=== PATIENT | male | born 1960 | race Caucasian/White ===

== ENCOUNTER 2021-04-10 07:31 | Emergency (ER) | payer OTHER, SELFPAY ==
[2021-04-10 07:37] VITALS: BP 160/84; PULSE 54; RESP 16; TEMP 36.6; O2SAT 98
--- NOTE | 2021-04-10 09:12 | W.ED.GENAD ---
Discharge Plan Disposition Patient Disposition: HOME Condition: Stable Discharge Details Clinical Impression: Rash, Diarrhea, Loss of appetite Primary Care Provider: [facility],Local ED Provider: Chery Martinez Home Meds and New Rx's Prescriptions: No Action No Known Home Meds RF: 0 Discharge Instructions Instructions: Lyme Disease (ED), Acute Diarrhea (ED), Acute Rash (ED) Additional Instructions: Please return immediately to the emergency department if you develop any new or worsening symptoms, if your condition does not improve as expected, or if you become otherwise concerned. It is extremely important that you call soon as possible to make an appointment to be seen in follow-up for this visit by your primary care doctor. Discharge Data Discharge Date/Time-TO BE ENTERED AT DEPARTURE: 04/10/21 11:18 Medical Decision Making Seven Macario is a 61-year-old man without reported major medical problems presenting to emergency department with chief complaint rash, also with mild diarrhea, nausea, and decreased appetite over the past few days. On exam Pt is very well and non-toxic appearing. B/l symmetric erythematous rash to the armpits with central clearing in areas of armpit hair. Otherwise benign exam. Rash has appearance of contact dermatitis given bilateral symmetry and clearing in areas of hair. Given mild systemic symptoms and outdoor exposure, plan for tick panel, screening labs, stool studies. Exam/hx at this time not c/w erythema migrans, sepsis, cellulitis, abscess. No indication for lyme ppx at this time. Labs reviewed, non-diagnostic, WBC 4.5, crp neg, ESR 6. C. diff canceled as stool sample solid. I had a lengthy discussion with Patient regarding return to emergency department precautions, home care, and importance of outpatient follow-up. Pt verbalizes understanding of the plan and is amenable. Patient discharged to home with clear plan for outpatient follow-up. All questions were answered. Disposition decision was made weighing the risks and benefits of hospitalization versus outpatient treatment, the risk for further decompensation, and the patient's wishes. Medical Records Medical records reviewed: Yes I reviewed the patient's medical records. Lab Data Lab results reviewed: Yes I reviewed the patient's lab results. Labs: Laboratory Tests Range/Units 04/10/21 04/10/21 04/10/21 09:05 09:05 09:05 WBC (4.4-10.8) 10^3/uL 4.53 RBC (4.36-5.78) 10^6/uL 4.58 Hgb (13.5-17.5) g/dL 14.4 Hct (40.0-50.0) % 41.9 MCV (80-95) fL 91.5 MCH (27.0-33.0) pg 31.4 MCHC (32.0-36.0) % 34.4 RDW (11.8-14.1) % 11.9 Plt Count (130-400) 10^3/uL 237 MPV (8.0-11.0) fL 9.4 Immature Gran % 0.2 Neutrophils % 40.3 Lymphocytes % 42.8 Monocytes % 14.3 Eosinophils % 1.3 Basophils % 1.1 Nucleated RBC % % 0 Absolute Neutrophils (1.2-6.7) 10^3/uL 1.82 Absolute Lymphocytes (1.2-3.4) 10^3/uL 1.94 Absolute Monocytes (0.1-0.8) 10^3/uL 0.65 Absolute Eosinophils (0.0-0.7) 10^3/uL 0.06 Absolute Basophils (0.0-0.2) 10^3/uL 0.05 ESR (0-20) mm/hr 6 Sodium (136-145) mmol/L 141 Potassium (3.5-5.1) mmol/L 4.1 Chloride (98-107) mmol/L 104 Carbon Dioxide (21.0-32.0) mmol/L 29.2 Anion Gap (3-11) mmol/L 7.8 BUN (7-18) mg/dL 16 Creatinine (0.70-1.30) mg/dL 1.2 Estimated GFR/1.73 m2 (mL/min/1.73m2) >= 60.00 Glucose (74-106) mg/dL 100 Calcium (8.5-10.1) mg/dL 9.0 Total Bilirubin (0.2-1.0) mg/dL 0.6 AST (15-37) U/L 23 ALT (16-63) U/L 38 Alkaline Phosphatase (46-116) U/L 49 C-Reactive Protein (0.0-0.3) mg/dL < 0.05 Total Protein (6.4-8.2) g/dL 8.1 Albumin (3.4-5.0) g/dL 4.2 Urine Color (Yellow) Urine Clarity (Clear) Urine pH (5-8) Ur Specific [place] (1.005-1.025) Urine Protein (Negative) mg/dL Urine Ketones (Negative) mg/dL Urine Blood (Negative) Urine Nitrite (Negative) Urine Bilirubin (Negative) Urine Urobilinogen (Up TO 0.2) EU/dL Ur Leukocyte Esterase (Negative) Urine Glucose (Negative) mg/dL Stool Campylobacter PCR (Negative) Stl C.difficile Tox PCR Stool Salmonella PCR (Negative) Stool Shigella PCR (Negative) A.phagocytophil DNA PCR (Negative) B. divergens/MO-1 PCR (Negative) Babesia duncani (PCR) (Negative) Babesia microti DNA PCR (Negative) Borrelia (PCR) (Negative) Lyme Disease Antibody (Negative) E.chaffeensis DNA (PCR) (Negative) E.ewingii/canis DNA PCR (Negative) E. muris-like DNA (PCR) (Negative) Shiga Toxin (PCR) (Negative) Range/Units 04/10/21 04/10/21 04/10/21 09:05 09:30 09:30 WBC (4.4-10.8) 10^3/uL RBC (4.36-5.78) 10^6/uL Hgb (13.5-17.5) g/dL Hct (40.0-50.0) % MCV (80-95) fL MCH (27.0-33.0) pg MCHC (32.0-36.0) % RDW (11.8-14.1) % Plt Count (130-400) 10^3/uL MPV (8.0-11.0) fL Immature Gran % Neutrophils % Lymphocytes % Monocytes % Eosinophils % Basophils % Nucleated RBC % % Absolute Neutrophils (1.2-6.7) 10^3/uL Absolute Lymphocytes (1.2-3.4) 10^3/uL Absolute Monocytes (0.1-0.8) 10^3/uL Absolute Eosinophils (0.0-0.7) 10^3/uL Absolute Basophils (0.0-0.2) 10^3/uL ESR (0-20) mm/hr Sodium (136-145) mmol/L Potassium (3.5-5.1) mmol/L Chloride (98-107) mmol/L Carbon Dioxide (21.0-32.0) mmol/L Anion Gap (3-11) mmol/L BUN (7-18) mg/dL Creatinine (0.70-1.30) mg/dL Estimated GFR/1.73 m2 (mL/min/1.73m2) Glucose (74-106) mg/dL Calcium (8.5-10.1) mg/dL Total Bilirubin (0.2-1.0) mg/dL AST (15-37) U/L ALT (16-63) U/L Alkaline Phosphatase (46-116) U/L C-Reactive Protein (0.0-0.3) mg/dL Total Protein (6.4-8.2) g/dL Albumin (3.4-5.0) g/dL Urine Color (Yellow) Urine Clarity (Clear) Urine pH (5-8) Ur Specific [place] (1.005-1.025) Urine Protein (Negative) mg/dL Urine Ketones (Negative) mg/dL Urine Blood (Negative) Urine Nitrite (Negative) Urine Bilirubin (Negative) Urine Urobilinogen (Up TO 0.2) EU/dL Ur Leukocyte Esterase (Negative) Urine Glucose (Negative) mg/dL Stool Campylobacter PCR (Negative) Negative Stl C.difficile Tox PCR Cancelled Stool Salmonella PCR (Negative) Negative Stool Shigella PCR (Negative) Negative A.phagocytophil DNA PCR (Negative) Negative B. divergens/MO-1 PCR (Negative) Negative Babesia duncani (PCR) (Negative) Negative Babesia microti DNA PCR (Negative) Negative Borrelia (PCR) (Negative) Negative Lyme Disease Antibody (Negative) Negative E.chaffeensis DNA (PCR) (Negative) Negative E.ewingii/canis DNA PCR (Negative) Negative E. muris-like DNA (PCR) (Negative) Negative Shiga Toxin (PCR) (Negative) Negative Range/Units 04/10/21 09:32 WBC (4.4-10.8) 10^3/uL RBC (4.36-5.78) 10^6/uL Hgb (13.5-17.5) g/dL Hct (40.0-50.0) % MCV (80-95) fL MCH (27.0-33.0) pg MCHC (32.0-36.0) % RDW (11.8-14.1) % Plt Count (130-400) 10^3/uL MPV (8.0-11.0) fL Immature Gran % Neutrophils % Lymphocytes % Monocytes % Eosinophils % Basophils % Nucleated RBC % % Absolute Neutrophils (1.2-6.7) 10^3/uL Absolute Lymphocytes (1.2-3.4) 10^3/uL Absolute Monocytes (0.1-0.8) 10^3/uL Absolute Eosinophils (0.0-0.7) 10^3/uL Absolute Basophils (0.0-0.2) 10^3/uL ESR (0-20) mm/hr Sodium (136-145) mmol/L Potassium (3.5-5.1) mmol/L Chloride (98-107) mmol/L Carbon Dioxide (21.0-32.0) mmol/L Anion Gap (3-11) mmol/L BUN (7-18) mg/dL Creatinine (0.70-1.30) mg/dL Estimated GFR/1.73 m2 (mL/min/1.73m2) Glucose (74-106) mg/dL Calcium (8.5-10.1) mg/dL Total Bilirubin (0.2-1.0) mg/dL AST (15-37) U/L ALT (16-63) U/L Alkaline Phosphatase (46-116) U/L C-Reactive Protein (0.0-0.3) mg/dL Total Protein (6.4-8.2) g/dL Albumin (3.4-5.0) g/dL Urine Color (Yellow) Yellow Urine Clarity (Clear) Clear Urine pH (5-8) 6.0 Ur Specific [place] (1.005-1.025) 1.020 Urine Protein (Negative) mg/dL Negative Urine Ketones (Negative) mg/dL Negative Urine Blood (Negative) Negative Urine Nitrite (Negative) Negative Urine Bilirubin (Negative) Negative Urine Urobilinogen (Up TO 0.2) EU/dL 0.2 Ur Leukocyte Esterase (Negative) Negative Urine Glucose (Negative) mg/dL Negative Stool Campylobacter PCR (Negative) Stl C.difficile Tox PCR Stool Salmonella PCR (Negative) Stool Shigella PCR (Negative) A.phagocytophil DNA PCR (Negative) B. divergens/MO-1 PCR (Negative) Babesia duncani (PCR) (Negative) Babesia microti DNA PCR (Negative) Borrelia (PCR) (Negative) Lyme Disease Antibody (Negative) E.chaffeensis DNA (PCR) (Negative) E.ewingii/canis DNA PCR (Negative) E. muris-like DNA (PCR) (Negative) Shiga Toxin (PCR) (Negative) HPI General Mode of arrival: ambulatory. Date/Time Provider Initiated Documentation: 04/10/21 08:47. Limitations to Documentation: no limitations. Information obtained by: patient, RN notes reviewed and old records reviewed. HPI Narrative: Seven Macario is a 61-year-old man without reported major medical problems presenting to emergency department with chief complaint rash. Patient reports that he lives in [place], has been in [place] for 10 days attending a meditation retreat. Patient reports that he has been spending a significant amount of time walking in the jones and sitting in grass. Patient reports that this morning in the bathroom he was raising his arm in front of the mirror and noticed rash to both of his armpits. Patient reports that he does not typically look at this area in the mirror, and is unsure how long rash has been present for. He denies any pain, itching, or other symptoms in the area of the rash. He denies any new detergents, lotions, deodorants, or other known new exposures. Patient reports that over the past few days he has also had diarrhea, mild abdominal cramping, and has had some decrease in his appetite which is atypical for him. Patient reports that he has no current pain. He reports mild dyspnea with exertion that is at baseline for him, also reports morning cough that is typical for him, though he is unsure whether his typical cough has become somewhat more productive than usual. He denies any fevers, numbness, weakness, vomiting, any other rash. Feels otherwise well and in his usual state of health. Denies allergies. Patient reports that he drinks 12 beers per week. Denies nicotine/tobacco use, denies recreational drug use. Patient reports that he is flying to [place] tomorrow, and was concerned that rash might represent tickborne illness, and wanted to get checked before traveling home. Patient has not found a tick on him, no known history of tick bite. Related Data Home Medications Medication Instructions Recorded Confirmed Unknown [No Known Home Meds] 04/10/21 04/10/21 Allergies Allergy/AdvReac Type Severity Reaction Status Date / Time iodine AdvReac Intermediate Skin Rash Unverified 04/10/21 07:41 General Stated Complaint: Abd Prob YNES: 3 Review of Systems Narrative: Constitutional: denies fevers Eyes: denies eye pain ENT: denies ear pain, dental pain, sore throat Cardiovascular: denies chest pain, edema Respiratory: reports chronic mild SOB, cough GI: denies vomiting, reports diarrhea, intermittent abdominal cramping : denies flank pain MSK: denies back pain, neck pain, arthralgias, myalgias Skin: reports rash b/l armpits Neuro: denies headaches, numbness, weakness [facility] Active Problem List Rash (Acute) Diarrhea (Acute) Loss of appetite (Acute) Social History Smoking/Tobacco Use Status: Former Tobacco Use Smoking risk assessment performed?: Yes Alcohol Intake: current Alcohol Intake frequency: a few times a week Drug use: Never Substance use type: does not use Do you feel safe at home: Yes Do you feel safe in your relationship?: Yes Exam Narrative Exam Narrative: Constitutional: well and [id number], pleasant, conversing normally HENT: head atraumatic/normocephalic/normal inspection, mucous membranes moist Eyes: conjunctiva normal, sclera normal, pupils 3mm b/l Neck: no stridor, normal ROM, trachea midline Chest: mild symmetric macular erythematous rash to b/l armpits with clearing in areas of armpit hair, non-tender to palpation, no warmth/crepitus/fluctuance/edema, otherwise normal inspection of the chest Resp: normal work of breathing, LCTAB Cardio: normal rate, normal rhythm, no murmur appreciated GI: abdomen soft, non-tender, non-distended Back: normal inspection, no rash Skin: warm, dry, normal color, no rash Neuro: alert, not altered, grossly non-focal, normal tone Ext: no edema Psych: normal mood, normal affect, normal behavior Course Vital Signs Vital signs: Vital Signs Temperature 36.6 C 04/10/21 07:37 Pulse 54 L 04/10/21 07:37 Respiratory Rate 16 04/10/21 07:37 Blood Pressure 160/84 H 04/10/21 07:37 Pulse Oximetry 98 04/10/21 07:37 Temperature 36.6 C 04/10/21 07:37 Temperature Source Temporal Artery Scan 04/10/21 07:37 Pulse 54 L 04/10/21 07:37 Respiratory Rate 16 04/10/21 07:37 Respiratory Effort Non-Labored 04/10/21 07:41 Blood Pressure 160/84 H 04/10/21 07:37 Blood Pressure Position Sitting 04/10/21 07:37 Pulse Oximetry 98 04/10/21 07:37 Oxygen Delivery Method Room Air 04/10/21 07:37 Oxygen Flow Rate 0 04/10/21 07:37 Pain Level 1 04/10/21 07:37 PAWSS Have you Been Recently Intoxicated or Drunk Within the Last 30 days?: No Have you Ever Experienced Previous Episodes of Alcohol Withdrawal?: No Have you ever Experienced Withdrawal Seizures?: No Have you ever Experienced Delirium Tremens(DT)s?: No Have you ever undergone Alcohol Rehabilitation Treatment (i.e, inpt ot outpatient treatment programs)?: No Have you ever Experienced Blackouts?: No Have you ever Combined Alcohol with other Downers within the last 90 days?: No Have you ever Combined Alcohol with any other Substance of Abuse during the last 90 days?: No Positive Blood Alcohol level on Presentation? [PCS.BAL]: No Evidence of Increased Autonomic Activity (i.e. HR>120, tremor, sweating, agitation, nausea)?: No Result: 0
[2021-04-10 09:17] LABS: Abs Immature Grans 0.01 10^3/uL (0.0-0.06); Absolute Basophil Count 0.05 10^3/uL (0.0-0.2); Absolute Eosinophil Count 0.06 10^3/uL (0.0-0.7); Absolute Lymphocyte Count 1.94 10^3/uL (1.2-3.4); Absolute Monocyte Count 0.65 10^3/uL (0.1-0.8); Absolute Neutrophil Count 1.82 10^3/uL (1.2-6.7); Basophils % 1.1; Eosinophils % 1.3; HCT 41.9 % (40.0-50.0); HGB 14.4 g/dL (13.5-17.5); Immature Grans % 0.2; Lymphocytes % 42.8; MCH 31.4 pg (27.0-33.0); MCHC 34.4 % (32.0-36.0); MCV 91.5 fL (80-95); MPV 9.4 fL (8.0-11.0); Monocytes % 14.3; Neutrophils % 40.3; Nucleated RBC 0 %; Platelet Count 237 10^3/uL (130-400); RBC 4.58 10^6/uL (4.36-5.78); RDW 11.9 % (11.8-14.1); RDW-SD 39.8 fL; WBC 4.53 10^3/uL (4.4-10.8)
[2021-04-10 09:22] LABS: ESR 6 mm/hr (0-20)
[2021-04-10 09:44] LABS: ALT 38 U/L (16-63); AST 23 U/L (15-37); Albumin 4.2 g/dL (3.4-5.0); Alkaline Phosphatase 49 U/L (46-116); Anion Gap 7.8 mmol/L (3-11); BUN 16 mg/dL (7-18); Bilirubin, Total 0.6 mg/dL (0.2-1.0); CO2 29.2 mmol/L (21.0-32.0); CREATININE 1.2 mg/dL (0.70-1.30); Chloride 104 mmol/L (98-107); Glucose 100 mg/dL (74-106); Potassium 4.1 mmol/L (3.5-5.1); Sodium 141 mmol/L (136-145); Total Protein 8.1 g/dL (6.4-8.2)
[2021-04-10 09:46] LABS: C-Reactive Protein < 0.05 mg/dL (0.0-0.3)
[2021-04-10 09:48] LABS: Bilirubin Negative (Negative); Blood Negative (Negative); Clarity Clear (Clear); Glucose Negative (Negative); Ketones Negative (Negative); Leukocyte Esterase Negative (Negative); Nitrite Negative (Negative); Urobilinogen 0.2 EU/dL (Up TO 0.2)
[2021-04-10 10:53] VITALS: BP 142/77; PULSE 53; RESP 16; O2SAT 98
[2021-04-10 22:19] LABS: Campylobacter PCR Negative (Negative); Salmonella PCR Negative (Negative); Shiga Toxin PCR Negative (Negative); Shigella/Enteroinvasive Ecoli Negative (Negative)
[2021-04-11 13:20] LABS: Lyme Ab w Rflx to Lyme Confirm Negative (Negative)
[2021-04-12 01:02] LABS: Anaplasma phagocytophilum Negative (Negative); B. miyamotoi PCR Negative (Negative); Babesia divergens/MO-1 Negative (Negative); Babesia duncani Negative (Negative); Babesia microti Negative (Negative); Ehrlichia chaffeensis Negative (Negative); Ehrlichia ewingii/canis Negative (Negative); Ehrlichia muris eauclairensis Negative (Negative)
== END 2021-04-10 11:18 | disposition home or self-care (01) ==
PROVIDERS: Emergency Provider Student in an Organized Health Care Education/Training Program
DX: R21 Rash and other nonspecific skin eruption (principal); R19.7 Diarrhea, unspecified; R63.0 Anorexia
CPT/HCPCS: 36415; 80053; 85652; 87493; 87505; 87798; 99283; 81003; 85025; 86140; 86618